=== PATIENT | female | born 1960 | race African-American/Black ===

== ENCOUNTER 2018-06-28 08:56 | Emergency (ER) | payer SELFPAY ==
[~2018-06-28] VITALS: Ht 172.7 cm; Wt 136.0 kg
[~2018-06-28 08:56] MED LIST: ASPI-1159 PO; CARV25TA47 PO; FURO-151 PO; LISI-186 PO; SIMV40TA5 PO; SPIR25TA6 PO
[2018-06-28] MEDS ORDERED: HYDROCODONE/ACETAMINOPHEN 5/325MG TABLET PO ONE (10:30)
[2018-06-28] MEDS ORDERED: IBUPROFEN 400MG TABLET PO ONE (10:30)
[2018-06-28 13:45] VITALS: BP 117/69
== END 2018-06-28 14:15 | disposition home or self-care (01) ==
LOC: ER 08:56
DX: S39.012A Strain of muscle, fascia and tendon of lower back, initial encounter (principal); S46.912A Strain of unspecified muscle, fascia and tendon at shoulder and upper arm level, left arm, initial encounter; S76.012A Strain of muscle, fascia and tendon of left hip, initial encounter; S86.912A Strain of unspecified muscle(s) and tendon(s) at lower leg level, left leg, initial encounter; J45.909 Unspecified asthma, uncomplicated; I11.0 Hypertensive heart disease with heart failure; I50.9 Heart failure, unspecified; E11.9 Type 2 diabetes mellitus without complications; I25.10 Atherosclerotic heart disease of native coronary artery without angina pectoris; I25.2 Old myocardial infarction; F17.200 Nicotine dependence, unspecified, uncomplicated; F10.20 Alcohol dependence, uncomplicated; Z79.899 Other long term (current) drug therapy; W01.0XXA Fall on same level from slipping, tripping and stumbling without subsequent striking against object, initial encounter; Y93.89 Activity, other specified; Y92.89 Other specified places as the place of occurrence of the external cause; Y99.8 Other external cause status; Y90.9 Presence of alcohol in blood, level not specified
CPT/HCPCS: 71045; 73030; 73502; 99283

== ENCOUNTER 2019-05-28 06:21 | Inpatient (IN) | payer OTHER ==
[~2019-05-28] VITALS: Ht 170.2 cm; Wt 137.0 kg
[2019-05-28] VITALS (8 sets, daily range): BP systolic 118–154; BP diastolic 50–86
[~2019-05-28 06:21] MED LIST changes: -ASPI-1159 PO; +ASPI-1393 PO
[2019-05-28 07:21] LABS: BG BASE EXCESS -3.6 mmol/L (-2.0-2.0); BG CARBOXYHEMOGLOBIN 2.2 % (0.5-1.5); BG DEOXYHEMOGLOBIN 5.1 % (0.0-5.0); BG HCO3 ACT 26.6 mmol/L (22.0-26.0); BG METHEMOGLOBIN 0.1 % (0.0-1.5); BG OXYGEN SATURATION 94.8 % (92.0-98.5); BG OXYHEMOGLOBIN 92.6 % (94.0-97.0); BG PH 7.173 (7.350-7.450); BG PO2 87.7 mmHg (75.0-100.0); BG SAMPLE SITE RIGHT RADIAL; BG TOTAL HEMOGLOBIN 13.9 g/dL (12.0-18.0); BG VENT MODE MASK - BIPAP; BG VENT RATE 18 set
[2019-05-28] MEDS ORDERED: IPRATROPIUM BROMIDE (0.02%) 0.5MG/2.5ML NEB HHN STA (07:45)
[2019-05-28] MEDS ORDERED: METHYLPREDNISOLONE SOD SUCC 125 MG/2 ML VIAL IV STA (07:45)
[2019-05-28] MEDS ORDERED: ALBUTEROL (0.083%) 2.5MG/3ML NEB HHN STA (07:45)
[2019-05-28 07:59] LABS: BASOPHILS % 1.1 % (0.0-2.0); EOSINOPHILS % 3.2 % (0.0-5.0); HEMATOCRIT. 43.5 % (36.0-48.0); HEMOGLOBIN. 13.5 g/dL (12.0-16.0); LYMPHOCYTES % 35.9 % (20.0-50.0); MEAN CORPUSCULAR HEMOGLOBIN 25.2 pg (28.0-32.0); MEAN CORPUSCULAR VOLUME 80.9 fL (81.0-99.0); MEAN PLATELET VOLUME 10.6 fl (7.4-10.4); MONOCYTES % 7.7 % (2.0-8.0); NEUTROPHILS % 52.1 % (40.0-76.0); PLATELET 273 x1000/uL (130-400); RED BLOOD CELL COUNT 5.38 mill/uL (4.2-5.4); RED CELL DISTRIBUTION WIDTH 17.2 % (11.6-14.6)
[2019-05-28 08:02] LABS: CHLORIDE 110 mEq/L (98-107)
[2019-05-28] MEDS ORDERED: FUROSEMIDE 40MG/4ML VIAL IVP ONE (08:15)
[2019-05-28] MEDS ORDERED: MAGNESIUM/ALUMINUM HYDROXIDE/SIMETHICONE 30ML UDC PO PRN (09:30)
[2019-05-28] MEDS ORDERED: CLONIDINE 0.1MG TABLET PO PRN (09:30)
[2019-05-28] MEDS ORDERED: ACETAMINOPHEN 325MG TABLET PO PRN (09:30)
[2019-05-28] MEDS ORDERED: ONDANSETRON HCL 4MG/2ML INJ IV PRN (09:30)
[2019-05-28] MEDS ORDERED: DOCUSATE SODIUM 100MG CAPSULE PO PRN (09:30)
[2019-05-28] MEDS ORDERED: IPRATROPIUM/ALBUTEROL 0.5-3(2.5)MG/3ML NEB HHN PRN (09:30)
[2019-05-28] MEDS ORDERED: DIPHENHYDRAMINE 50MG/ML VIAL IV PRN (09:30)
[2019-05-28] MEDS ORDERED: GUAIFENESIN 200MG/10ML SUGAR FREE UDC PO PRN (09:30)
[2019-05-28] MEDS ORDERED: ENOXAPARIN 40MG/0.4ML SYR SUBCUT SCH (09:30)
[2019-05-28] MEDS ORDERED: HYDROCODONE/ACETAMINOPHEN 5/325MG TABLET PO PRN (09:30)
[2019-05-28 09:35] LABS: PHOSPHORUS 6.7 mg/dL (2.5-4.9)
[2019-05-28] MEDS ORDERED: DEXTROSE 50% WATER 50ML SYRINGE IV PRN (10:45)
[2019-05-28] MEDS: BLOOD SUGAR DIAGNOSTIC STRIP TEST SCH ×3 (11:26→21:45)
[2019-05-28] MEDS: INSULIN LISPRO 100 UNITS/ML SUBCUT SCH ×3 (11:26→21:52)
[2019-05-28] MEDS: ENOXAPARIN 40MG/0.4ML SYR SUBCUT SCH ×2 (11:58→21:34)
[2019-05-28] MEDS ORDERED: PNEUMOCOCCAL 23-VAL P-SAC VAC 0.5 ML IM ONE (12:00)
[2019-05-28] MEDS ORDERED: INFLUENZA VIRUS VACCINE(AFLURIA) 0.5ML SYR IM ONE (12:00)
[2019-05-28 13:56] LABS: BG BASE EXCESS 1.2 mmol/L (-2.0-2.0); BG CARBOXYHEMOGLOBIN 1.6 % (0.5-1.5); BG FRACTION INSPIRED OXYGEN 21; BG METHEMOGLOBIN 0.2 % (0.0-1.5); BG OXYGEN SATURATION 86.8 % (92.0-98.5); BG OXYHEMOGLOBIN 85.2 % (94.0-97.0); BG PO2 51.6 mmHg (75.0-100.0); BG SAMPLE SITE RIGHT RADIAL; BG VENT MODE ROOM AIR
[2019-05-28] MEDS: FUROSEMIDE 40MG/4ML VIAL IVP SCH (18:05)
[2019-05-28] MEDS: METFORMIN HCL 500MG TABLET PO SCH (18:05)
[2019-05-28] MEDS: ASPIRIN 81MG TABLET PO SCH (18:05)
[2019-05-28] MEDS: LOSARTAN POTASSIUM 100 MG TABLET PO SCH (18:06)
[2019-05-28] MEDS: CARVEDILOL 12.5MG TABLET PO SCH (21:35)
[2019-05-28] MEDS: ATORVASTATIN CALCIUM 40MG TABLET PO SCH (21:35)
[2019-05-29] VITALS (12 sets, daily range): BP systolic 101–123; BP diastolic 31–66
[2019-05-29] MEDS: IPRATROPIUM/ALBUTEROL 0.5-3(2.5)MG/3ML NEB HHN SCH ×4 (02:00→22:07)
[2019-05-29] MEDS: FUROSEMIDE 40MG/4ML VIAL IVP SCH ×2 (05:23→18:25)
[2019-05-29] MEDS: BLOOD SUGAR DIAGNOSTIC STRIP TEST SCH ×4 (07:30→21:54)
[2019-05-29 07:52] LABS: BG BASE EXCESS 2.5 mmol/L (-2.0-2.0); BG CARBOXYHEMOGLOBIN 0.5 % (0.5-1.5); BG DEOXYHEMOGLOBIN 4.9 % (0.0-5.0); BG HCO3 ACT 30.1 mmol/L (22.0-26.0); BG METHEMOGLOBIN 0.5 % (0.0-1.5); BG OXYGEN SATURATION 95.1 % (92.0-98.5); BG OXYHEMOGLOBIN 94.1 % (94.0-97.0); BG PH 7.318 (7.350-7.450); BG PO2 78.5 mmHg (75.0-100.0); BG SAMPLE SITE RIGHT RADIAL; BG TOTAL HEMOGLOBIN 13.4 g/dL (12.0-18.0); BG VENT MODE NASAL CANNULA
[2019-05-29] MEDS: INSULIN LISPRO 100 UNITS/ML SUBCUT SCH ×4 (08:00→21:00)
[2019-05-29] MEDS ORDERED: LIDOCAINE HCL/PF 1% 2ML VIAL ONE (09:20)
[2019-05-29] MEDS: ENOXAPARIN 40MG/0.4ML SYR SUBCUT SCH ×2 (09:21→21:44)
[2019-05-29] MEDS: ASPIRIN 81MG TABLET PO SCH (11:34)
[2019-05-29] MEDS: METFORMIN HCL 500MG TABLET PO SCH ×2 (11:34→18:25)
[2019-05-29] MEDS: LOSARTAN POTASSIUM 100 MG TABLET PO SCH (11:36)
[2019-05-29] MEDS: SPIRONOLACTONE 50MG TABLET PO SCH (11:36)
[2019-05-29] MEDS: CARVEDILOL 12.5MG TABLET PO SCH ×2 (12:24→21:00)
[2019-05-29 13:01] LABS: BASOPHILS % 0.6 % (0.0-2.0); EOSINOPHILS % 0.3 % (0.0-5.0); HEMATOCRIT. 39.7 % (36.0-48.0); HEMOGLOBIN. 12.6 g/dL (12.0-16.0); LYMPHOCYTES % 21.9 % (20.0-50.0); MEAN CORPUSCULAR HEMOGLOBIN 25.2 pg (28.0-32.0); MEAN CORPUSCULAR VOLUME 79.3 fL (81.0-99.0); MEAN PLATELET VOLUME 9.9 fl (7.4-10.4); MONOCYTES % 8.4 % (2.0-8.0); NEUTROPHILS % 68.8 % (40.0-76.0); PLATELET 219 x1000/uL (130-400); RED BLOOD CELL COUNT 5.01 mill/uL (4.2-5.4); RED CELL DISTRIBUTION WIDTH 17.7 % (11.6-14.6)
[2019-05-29 13:10] LABS: CHLORIDE 108 mEq/L (98-107)
[2019-05-29 13:17] LABS: LDL CHOLESTEROL 132 mg/dL (5-100)
[2019-05-29 13:19] LABS: HDL CHOLESTEROL 45 mg/dL (40-59)
[2019-05-29] MEDS: ATORVASTATIN CALCIUM 40MG TABLET PO SCH (21:43)
[2019-05-30] VITALS (10 sets, daily range): BP systolic 124–148; BP diastolic 48–80
[2019-05-30] MEDS: IPRATROPIUM/ALBUTEROL 0.5-3(2.5)MG/3ML NEB HHN SCH ×4 (01:04→15:02)
[2019-05-30] MEDS: FUROSEMIDE 40MG/4ML VIAL IVP SCH (06:44)
[2019-05-30 07:23] LABS: EOSINOPHILS % 1.8 % (0.0-5.0); HEMATOCRIT. 42.4 % (36.0-48.0); HEMOGLOBIN. 13.4 g/dL (12.0-16.0); LYMPHOCYTES % 32.6 % (20.0-50.0); MEAN CORPUSCULAR HEMOGLOBIN 25.2 pg (28.0-32.0); MEAN CORPUSCULAR VOLUME 79.4 fL (81.0-99.0); MEAN PLATELET VOLUME 9.4 fl (7.4-10.4); MONOCYTES % 9.5 % (2.0-8.0); NEUTROPHILS % 55.1 % (40.0-76.0); PLATELET 228 x1000/uL (130-400); RED BLOOD CELL COUNT 5.34 mill/uL (4.2-5.4); RED CELL DISTRIBUTION WIDTH 17.5 % (11.6-14.6)
[2019-05-30 07:40] LABS: CHLORIDE 108 mEq/L (98-107)
[2019-05-30] MEDS: BLOOD SUGAR DIAGNOSTIC STRIP TEST SCH ×3 (07:42→17:26)
[2019-05-30] MEDS: INSULIN LISPRO 100 UNITS/ML SUBCUT SCH ×3 (07:42→17:26)
[2019-05-30 09:22] LABS: BG BASE EXCESS 7.5 mmol/L (-2.0-2.0); BG CARBOXYHEMOGLOBIN 0.5 % (0.5-1.5); BG FRACTION INSPIRED OXYGEN 21; BG HCO3 ACT 35.1 mmol/L (22.0-26.0); BG METHEMOGLOBIN 0.3 % (0.0-1.5); BG OXYGEN SATURATION 91.9 % (92.0-98.5); BG OXYHEMOGLOBIN 91.2 % (94.0-97.0); BG PCO2 62.7 mmHg (35.0-45.0); BG PH 7.366 (7.350-7.450); BG PO2 66.2 mmHg (75.0-100.0); BG SAMPLE SITE RIGHT RADIAL; BG TOTAL HEMOGLOBIN 14.4 g/dL (12.0-18.0); BG VENT MODE ROOM AIR
[2019-05-30] MEDS: METFORMIN HCL 500MG TABLET PO SCH (09:33)
[2019-05-30] MEDS: CARVEDILOL 12.5MG TABLET PO SCH (09:33)
[2019-05-30] MEDS: SPIRONOLACTONE 50MG TABLET PO SCH (09:34)
[2019-05-30] MEDS: ENOXAPARIN 40MG/0.4ML SYR SUBCUT SCH (09:34)
[2019-05-30] MEDS: LOSARTAN POTASSIUM 100 MG TABLET PO SCH (09:34)
[2019-05-30] MEDS: ASPIRIN 81MG TABLET PO SCH (09:34)
[2019-05-30] MEDS ORDERED: LOSA100T3 PO (14:51)
[2019-05-30] MEDS ORDERED: LIP40 PO (14:51)
[2019-05-30] MEDS ORDERED: METF500T PO (14:51)
[2019-05-30] MEDS ORDERED: ALD50 PO (14:51)
[2019-05-30] MEDS ORDERED: COR12 PO (14:51)
== END 2019-05-30 18:30 | disposition home or self-care (01) | DRG 133 ==
LOC: ER 06:21 → 5EST 08:13 → EDBEDREQ 08:22 → EDBEDREQTM 08:22 → EDBEDREQSVC 08:22 → ENRESERV 09:10
PROVIDERS: ADMIT Internal Medicine; ATTEND Internal Medicine
PROC: 5A09357 Assistance with Respiratory Ventilation, Less than 24 Consecutive Hours, Continuous Positive Airway Pressure (ICD-10-PCS; principal; 2019-05-28)
DX: J96.20 Acute and chronic respiratory failure, unspecified whether with hypoxia or hypercapnia (principal); I50.43 Acute on chronic combined systolic (congestive) and diastolic (congestive) heart failure; E87.2 Acidosis; I42.9 Cardiomyopathy, unspecified; E66.01 Morbid (severe) obesity due to excess calories; Z68.42 Body mass index [BMI] 45.0-49.9, adult; I11.0 Hypertensive heart disease with heart failure; E11.9 Type 2 diabetes mellitus without complications; R74.0 Nonspecific elevation of levels of transaminase and lactic acid dehydrogenase [LDH]; E78.5 Hyperlipidemia, unspecified; R35.1 Nocturia; M19.90 Unspecified osteoarthritis, unspecified site; F32.9 Major depressive disorder, single episode, unspecified; E66.9 Obesity, unspecified; F10.21 Alcohol dependence, in remission; F17.210 Nicotine dependence, cigarettes, uncomplicated; I25.10 Atherosclerotic heart disease of native coronary artery without angina pectoris; F19.10 Other psychoactive substance abuse, uncomplicated; J44.9 Chronic obstructive pulmonary disease, unspecified; F14.10 Cocaine abuse, uncomplicated; K76.0 Fatty (change of) liver, not elsewhere classified; Z79.82 Long term (current) use of aspirin; Z79.84 Long term (current) use of oral hypoglycemic drugs; Z91.010 Allergy to peanuts; I25.2 Old myocardial infarction; Z91.14 Patient's other noncompliance with medication regimen; Z95.810 Presence of automatic (implantable) cardiac defibrillator; Z79.899 Other long term (current) drug therapy
CPT/HCPCS: 36415; 36600; 71045; 76700; 80048; 80061; 80076; 82248; 82375; 82805; 82962; 83735; 83880; 84100; 84443; 84484; 90686; 90732; 93005; 93970; 94640; 94644; 94660; 96374; 97162; 97165; 99285; J1650; J1815; J1940; J2930; J3490; J7611; J7620

== ENCOUNTER 2020-02-19 13:29 | Emergency (ER) | payer OTHER ==
[~2020-02-19] VITALS: Ht 170.2 cm; Wt 126.0 kg
[~2020-02-19 13:29] MED LIST changes: +ALD50 PO; -ASPI-1393 PO; +ASPI-1497 PO; -CARV25TA47 PO; +COR12 PO; -LISI-186 PO; +LOSA100T3 PO; +METF500T PO; -SIMV40TA5 PO; -SPIR25TA6 PO
[2020-02-19] MEDS ORDERED: HYDROCODONE/ACETAMINOPHEN 5/325MG TABLET PO ONE (14:15)
[2020-02-19 14:34] VITALS: BP 111/78
== END 2020-02-19 14:35 | disposition home or self-care (01) ==
LOC: ER 13:50
DX: M79.10 Myalgia, unspecified site (principal); I11.0 Hypertensive heart disease with heart failure; I50.9 Heart failure, unspecified; E11.9 Type 2 diabetes mellitus without complications; J45.909 Unspecified asthma, uncomplicated; I25.10 Atherosclerotic heart disease of native coronary artery without angina pectoris; Z79.899 Other long term (current) drug therapy; V49.88XA Car occupant (driver) (passenger) injured in other specified transport accidents, initial encounter; Y93.89 Activity, other specified; Y92.89 Other specified places as the place of occurrence of the external cause; Y99.8 Other external cause status
CPT/HCPCS: 99283

== ENCOUNTER 2023-03-22 15:38 | Emergency (ER) | payer SELFPAY ==
[~2023-03-22] VITALS: Ht 175.3 cm; Wt 104.0 kg
[~2023-03-22 15:38] MED LIST changes: -LOSA100T3 PO; +LOSA100T4 PO
[2023-03-22 15:49] VITALS: BP 115/71; PULSE 76; RESP 20; TEMP 98.1; O2SAT 99
== END 2023-03-22 17:50 | disposition home or self-care (01) ==
LOC: ER 15:38
DX: S39.012A Strain of muscle, fascia and tendon of lower back, initial encounter (principal); I11.0 Hypertensive heart disease with heart failure; I50.9 Heart failure, unspecified; I25.10 Atherosclerotic heart disease of native coronary artery without angina pectoris; J45.909 Unspecified asthma, uncomplicated; Z79.899 Other long term (current) drug therapy; V49.49XA Driver injured in collision with other motor vehicles in traffic accident, initial encounter; Y93.89 Activity, other specified; Y92.89 Other specified places as the place of occurrence of the external cause; Y99.8 Other external cause status
CPT/HCPCS: 99281

== ENCOUNTER 2024-03-19 06:03 | Emergency (ER) | payer SELFPAY ==
[~2024-03-19] VITALS: Ht 170.2 cm; Wt 100.0 kg
[~2024-03-19 06:03] MED LIST changes: +LOSA-415 PO; -LOSA100T4 PO
[2024-03-19 06:12] VITALS: O2SAT 96
[2024-03-19] MEDS ORDERED: ONDANSETRON HCL 4MG/2ML INJ IM ONE (07:00)
[2024-03-19 07:10] LABS: HEMATOCRIT. 45.4 % (36.0-48.0); HEMOGLOBIN. 14.8 g/dL (12.0-16.0); MEAN CORPUSCULAR HEMOGLOBIN 27.2 pg (28.0-32.0); MEAN CORPUSCULAR HGB CONC 32.6 g/dL (31.0-37.0); MEAN CORPUSCULAR VOLUME 83.6 fL (81.0-99.0); MEAN PLATELET VOLUME 8.9 fl (7.4-10.4); PLATELET 232 x1000/uL (130-400); RED BLOOD CELL COUNT 5.43 mill/uL (4.2-5.4); RED CELL DISTRIBUTION WIDTH 15.4 % (11.6-14.6); WHITE BLOOD COUNT 10.1 x1000/uL (4.5-11.0)
[2024-03-19 07:12] LABS: DIFFERENTIAL COMMENT 1
[2024-03-19 07:13] LABS: CHLORIDE 109 mEq/L (98-107); POTASSIUM 4.1 mEq/L (3.5-5.1); SODIUM 143 mEq/L (136-145)
[2024-03-19 07:14] LABS: CALCIUM 10.1 mg/dL (8.7-10.4); CARBON DIOXIDE 30 mEq/L (21-32)
[2024-03-19 07:18] LABS: CREATININE 0.8 mg/dL (0.6-1.0)
[2024-03-19 07:19] LABS: GLUCOSE 121 mg/dL (70-105); TROPONIN I HIGH SENSITIVITY 13 ng/L (3.0-34); UREA NITROGEN BLOOD 13 mg/dL (9-23)
[2024-03-19 07:20] LABS: ALANINE AMINOTRANSFERASE 31 IU/L (10-49); ASPARTATE AMINOTRANSFERASE 24 IU/L (<34)
[2024-03-19 07:21] LABS: ALBUMIN 4.9 g/dL (3.2-4.8); BILIRUBIN DIRECT 0.1 mg/dL (<=3.0); BILIRUBIN TOTAL 0.5 mg/dL (0.1-1.0); PROTEIN TOTAL 7.9 g/dL (6.0-8.3)
[2024-03-19 07:44] LABS: LACTATE DEHYDROGENASE 321 IU/L (120-246)
[2024-03-19] MEDS: ONDANSETRON HCL 4MG/2ML INJ IM NR (09:57)
[2024-03-19] MEDS ORDERED: OMEP20CA14 MT (09:59)
[2024-03-19] MEDS: ACETAMINOPHEN 325MG TABLET PO ONE (10:00)
[2024-03-19] MEDS: ACETAMINOPHEN 325MG TABLET ONE (10:23)
[2024-03-19 10:54] VITALS: BP 162/75; PULSE 65; RESP 18; TEMP 98.1
[2024-03-19 11:12] LABS: ANISOCYTOSIS 1+; PLATELET ESTIMATE NORMAL
== END 2024-03-19 10:55 | disposition home or self-care (01) ==
LOC: ER 06:03
DX: K20.90 Esophagitis, unspecified without bleeding (principal); R11.2 Nausea with vomiting, unspecified; R19.7 Diarrhea, unspecified; E11.9 Type 2 diabetes mellitus without complications; I11.0 Hypertensive heart disease with heart failure; J45.909 Unspecified asthma, uncomplicated; I50.9 Heart failure, unspecified; Z91.010 Allergy to peanuts
CPT/HCPCS: 80076; 80048; 83615; 83690; 85025; 84484; 36415; 74176; 96372; 99285; J2405; Z7610